=== PATIENT | male | born 1970 | race Two or more races ===

== ENCOUNTER 2018-04-21 22:34 | Emergency (ER) | payer MEDICAID ==
[~2018-04-21] VITALS: Ht 185.4 cm; Wt 130.2 kg
[2018-04-22 00:59] VITALS: BP 133/116
== END 2018-04-22 00:59 | disposition home or self-care (01) ==
LOC: ED 22:34
DX: K04.7 Periapical abscess without sinus (principal); I10 Essential (primary) hypertension; E78.00 Pure hypercholesterolemia, unspecified
CPT/HCPCS: J1885

== ENCOUNTER 2018-12-06 17:22 | Inpatient (IN) | payer OTHER ==
[~2018-12-06] VITALS: Ht 185.4 cm; Wt 108.0 kg
[2018-12-06 17:28] VITALS: Ht 185.4 cm; Wt 108.0 kg
[2018-12-06 18:01] LABS: BASOPHIL % 0.5 % (0-2); PLATELET COUNT 213 x10^3mcL (130-400); RED CELL DISTRIBUTION WIDTH 11.9 % (11.5-14.5)
[2018-12-06 18:06] LABS: CALCIUM 9.2 mg/dL (8.5-10.1); CHLORIDE SERUM 103 mmol/L (98-107); GFR1 > 60 mL/min; GLUCOSE SERUM 101 mg/dL (74-106); SODIUM SERUM 139 mmol/L (136-145)
[2018-12-06 18:18] LABS: ALBUMIN 3.9 g/dL (3.4-5.0); ALKALINE PHOSPHATASE 107 U/L (46-116); ALT/SGPT 24 U/L (16-63); AMYLASE 42 U/L (25-115); AST/SGOT 16 U/L (15-37); BILIRUBIN TOTAL 0.3 mg/dL (0.20-1.00); LIPASE 242 IU/L (73-393); T4(THYROXINE) 8.9 ug/dL (4.7-13.3)
[2018-12-06 18:19] LABS: CHOLESTEROL 224 mg/dL (<200); HDL CHOLESTEROL 34 mg/dL (40-60); TOTAL PROTEIN, SERUM 8.5 g/dL (6.4-8.2)
[2018-12-06 19:45] LABS: CHOLESTEROL/HDL RATIO 6.6; MAGNESIUM 2.1 mg/dL (1.8-2.4); PHOSPHOROUS 3.6 mg/dL (2.5-4.9)
[2018-12-06 20:09] VITALS: BP 104/62
[2018-12-06 23:46] LABS: microscopic required? NO
[2018-12-07 00:07] LABS: UA SPECIFIC GRAVITY 1.015 (1.005-1.035); urine erythrocyte NEGATIVE (NEGATIVE)
[2018-12-07 00:29] LABS: AMPHETAMINE QUAL UR NONE DETECTED (See below)
[2018-12-07 04:54] VITALS: BP 117/83
[2018-12-07 07:39] LABS: CALCIUM 8.6 mg/dL (8.5-10.1); CARBON DIOXIDE 24.4 mmol/L (21-32); CHLORIDE SERUM 104 mmol/L (98-107); GFR1 > 60 mL/min; GLUCOSE SERUM 81 mg/dL (74-106); PHOSPHOROUS 4.1 mg/dL (2.5-4.9); POTASSIUM SERUM 3.7 mmol/L (3.5-5.1); SODIUM SERUM 139 mmol/L (136-145)
[2018-12-07 08:45] LABS: BASOPHIL % 0.6 % (0-2); PLATELET COUNT 190 x10^3mcL (130-400); RED CELL DISTRIBUTION WIDTH 12.3 % (11.5-14.5)
[2018-12-07 09:31] VITALS: BP 118/71
[2018-12-07] MEDS ORDERED: PRA20 PO (12:41)
[2018-12-07] MEDS ORDERED: CLONIDINE HCL0.2 MG PO (13:11)
[2018-12-07] MEDS ORDERED: METOPROLOL SUC100 M2 PO (13:11)
[2018-12-07] MEDS ORDERED: NOR10 PO (13:11)
[2018-12-07 13:12] VITALS: BP 113/73
[2018-12-07] MEDS ORDERED: HEALTH MART IB200 MG PO (14:23)
[2018-12-07] MEDS ORDERED: HYDROCHLOROTHIA25 MG PO (14:24)
[2018-12-07] MEDS ORDERED: ZOLOFT50 MG PO (14:25)
[2018-12-07] MEDS ORDERED: RISPERDAL2 M1 PO (14:26)
[2018-12-07] MEDS ORDERED: PRAVACHOL20 MG PO (14:27)
[2018-12-07] MEDS ORDERED: INVEGA SUSTENN234 MG IM (14:46)
[2018-12-07 16:56] VITALS: BP 105/72
[2018-12-07 21:15] VITALS: BP 113/76
[2018-12-08 05:54] VITALS: BP 137/88
[2018-12-08 06:54] LABS: CHLORIDE SERUM 106 mmol/L (98-107); CREATININE SERUM 1.1 mg/dL (0.7-1.3); GFR1 > 60 mL/min; GLUCOSE SERUM 91 mg/dL (74-106); POTASSIUM SERUM 4.1 mmol/L (3.5-5.1); SODIUM SERUM 142 mmol/L (136-145)
[2018-12-08 07:12] LABS: BASOPHIL % 0.2 % (0-2); PLATELET COUNT 197 x10^3mcL (130-400); RED CELL DISTRIBUTION WIDTH 13.3 % (11.5-14.5)
[2018-12-08 12:18] VITALS: BP 132/85
[2018-12-08 18:04] VITALS: BP 137/88
[2018-12-08 20:33] VITALS: BP 138/88
[2018-12-09 05:21] VITALS: BP 134/85
[2018-12-09 06:31] LABS: BASOPHIL % 0.3 % (0-2); PLATELET COUNT 191 x10^3mcL (130-400); RED CELL DISTRIBUTION WIDTH 13.1 % (11.5-14.5)
[2018-12-09 06:43] LABS: CALCIUM 8.8 mg/dL (8.5-10.1); CHLORIDE SERUM 104 mmol/L (98-107); GFR1 > 60 mL/min; GLUCOSE SERUM 90 mg/dL (74-106); MAGNESIUM 1.8 mg/dL (1.8-2.4); PHOSPHOROUS 3.7 mg/dL (2.5-4.9); POTASSIUM SERUM 3.8 mmol/L (3.5-5.1); SODIUM SERUM 139 mmol/L (136-145)
[2018-12-09 10:01] VITALS: BP 136/87
[2018-12-09 13:32] VITALS: BP 139/87
[2018-12-09] MEDS ORDERED: GOOD SENSE ASPI81 M3 PO (15:28)
[2018-12-09] MEDS ORDERED: PROPRANOLOL HCL10 MG PO (15:29)
[2018-12-09 16:28] VITALS: BP 139/87
[2018-12-09 17:38] VITALS: BP 137/97
[2018-12-09 20:27] VITALS: BP 140/89
[2018-12-10 05:41] VITALS: BP 177/81
[2018-12-10 09:02] VITALS: BP 139/91
[2018-12-10 11:24] VITALS: BP 139/91
== END 2018-12-10 18:10 | disposition home or self-care (01) | DRG 198 ==
LOC: ED 17:22 → DU 19:03
PROVIDERS: Emergency Medicine; Family Medicine; ADMIT Internal Medicine
DX: I20.9 Angina pectoris, unspecified (principal); F20.9 Schizophrenia, unspecified; F41.9 Anxiety disorder, unspecified; I10 Essential (primary) hypertension; E78.00 Pure hypercholesterolemia, unspecified; R73.03 Prediabetes; E78.5 Hyperlipidemia, unspecified; Z68.32 Body mass index [BMI] 32.0-32.9, adult
CPT/HCPCS: 83880; A9500; J2270; J2785; J7030; Q0092